=== PATIENT | female | born 1990 | race Two or more races ===

== ENCOUNTER 2018-08-19 14:05 | Outpatient (CLI) | payer OTHER ==
[~2018-08-19 14:05] MED LIST: DOLOGESIC CAPLE1 TAB PO; LEVAQUIN750 MG PO; ORAPRED ODT10 MG/TAB PO; SYMBICORT 16010.2 GM PO; TOBREX5 ML OP; XOPENEX HFA15 GM IH
== END 2018-08-19 14:10 | disposition home or self-care (01) ==
LOC: LAB 14:05
DX: J11.1 Influenza due to unidentified influenza virus with other respiratory manifestations (principal); J02.8 Acute pharyngitis due to other specified organisms; J20.0 Acute bronchitis due to Mycoplasma pneumoniae

== ENCOUNTER → 2018-10-31 | Outpatient (CLI) | payer OTHER | END | disposition home or self-care (01) | LOC: SONOGRAMA 13:03 | DX: N64.89 Other specified disorders of breast (principal) ==

== ENCOUNTER 2019-04-29 08:36 | Outpatient (CLI) | payer OTHER | END 2019-04-29 08:46 | disposition home or self-care (01) | LOC: SONOGRAMA 08:36 | DX: N60.11 Diffuse cystic mastopathy of right breast (principal); N60.12 Diffuse cystic mastopathy of left breast; Z80.8 Family history of malignant neoplasm of other organs or systems ==

== ENCOUNTER 2019-06-13 09:45 | Outpatient (CLI) | payer OTHER | END 2019-06-13 09:56 | disposition home or self-care (01) | LOC: LAB 09:45 | DX: J11.1 Influenza due to unidentified influenza virus with other respiratory manifestations (principal) ==

== ENCOUNTER → 2019-09-23 13:56 | Outpatient (CLI) | payer OTHER | END | disposition home or self-care (01) | LOC: LAB 13:56 | DX: J11.1 Influenza due to unidentified influenza virus with other respiratory manifestations (principal); R05 Cough; Z20.89 Contact with and (suspected) exposure to other communicable diseases ==

== ENCOUNTER 2019-09-23 14:37 | Outpatient (CLI) | payer OTHER | END 2019-09-23 14:38 | disposition home or self-care (01) | LOC: RAD 14:37 | DX: R05 Cough (principal); J06.9 Acute upper respiratory infection, unspecified ==

== ENCOUNTER 2020-02-26 13:32 | Outpatient (CLI) | payer OTHER | END 2020-02-26 13:45 | disposition home or self-care (01) | LOC: CERTIFICAD 13:32 | PROVIDERS: ATTEND Internal Medicine Infectious Disease | DX: Z02.79 Encounter for issue of other medical certificate (principal); J06.9 Acute upper respiratory infection, unspecified ==

== ENCOUNTER 2020-02-26 13:37 | Outpatient (CLI) | payer OTHER | END 2020-02-26 13:45 | disposition home or self-care (01) | LOC: RAD 13:37 | PROVIDERS: ATTEND Internal Medicine Infectious Disease | DX: J06.9 Acute upper respiratory infection, unspecified (principal) ==

== ENCOUNTER 2020-03-15 17:10 | Outpatient (CLI) | payer OTHER | END 2020-03-15 19:16 | disposition home or self-care (01) | LOC: PPH VACUNA 17:10 | DX: Z23 Encounter for immunization (principal) ==

== ENCOUNTER 2020-03-29 13:01 | Outpatient (CLI) | payer OTHER | END 2020-03-29 13:11 | disposition home or self-care (01) | LOC: SONOGRAMA 13:01 → MAMO-SONO 13:15 | PROVIDERS: ATTEND Surgery | DX: N60.11 Diffuse cystic mastopathy of right breast (principal); N60.12 Diffuse cystic mastopathy of left breast ==

== ENCOUNTER → 2020-12-29 | Outpatient (CLI) | payer OTHER | END | disposition home or self-care (01) | LOC: LAB 15:35 | PROVIDERS: ATTEND Emergency Medicine Pediatric Emergency Medicine | DX: Z03.818 Encounter for observation for suspected exposure to other biological agents ruled out (principal) ==

== ENCOUNTER → 2021-03-06 | Outpatient (CLI) | payer OTHER | END | disposition home or self-care (01) | LOC: PPH VACUNA 08:00 | PROVIDERS: ATTEND Emergency Medicine Pediatric Emergency Medicine | DX: Z23 Encounter for immunization (principal) ==

== ENCOUNTER 2021-04-19 09:00 | Outpatient (CLI) | payer OTHER | END 2021-04-19 09:30 | disposition home or self-care (01) | LOC: PPH VACUNA 09:00 | PROVIDERS: ATTEND Emergency Medicine Pediatric Emergency Medicine | DX: Z23 Encounter for immunization (principal) ==

== ENCOUNTER 2021-11-08 07:42 | Outpatient (CLI) | payer OTHER | END 2021-11-08 08:15 | disposition home or self-care (01) | LOC: SONOGRAMA 07:42 | PROVIDERS: ATTEND Surgery | DX: N60.11 Diffuse cystic mastopathy of right breast (principal); N60.12 Diffuse cystic mastopathy of left breast ==

== ENCOUNTER 2022-02-21 08:00 | Outpatient (CLI) | payer OTHER | END 2022-02-21 08:05 | disposition home or self-care (01) | LOC: PPH VACUNA 08:00 | PROVIDERS: ATTEND Emergency Medicine Pediatric Emergency Medicine | DX: Z23 Encounter for immunization (principal) ==

== ENCOUNTER 2022-05-01 08:53 | Outpatient (CLI) | payer OTHER | END 2022-05-01 09:00 | disposition home or self-care (01) | LOC: LAB 08:53 | PROVIDERS: ATTEND Preventive Medicine Occupational Medicine | DX: U07.1 COVID-19 (principal) ==

== ENCOUNTER 2022-11-23 16:39 | Outpatient (CLI) | payer OTHER ==
[2022-11-23] MEDS ORDERED: ZITHROMAX500 MG PO (21:07)
[2022-11-23] MEDS ORDERED: ZYRTEC10 M3 PO (21:07)
== END 2022-11-23 16:40 | disposition home or self-care (01) ==
LOC: LAB 16:39
PROVIDERS: ATTEND Internal Medicine
DX: Z20.822 Contact with and (suspected) exposure to COVID-19 (principal); J06.9 Acute upper respiratory infection, unspecified

== ENCOUNTER 2022-11-23 19:59 | Emergency (ER) | payer OTHER ==
[~2022-11-23] VITALS: Ht 157.5 cm; Wt 45.8 kg
[2022-11-23] MEDS ORDERED: ZYRTEC10 M3 PO (21:07)
[2022-11-23] MEDS ORDERED: ZITHROMAX500 MG PO (21:07)
== END 2022-11-23 21:33 | disposition home or self-care (01) ==
LOC: ER 19:59
DX: B34.9 Viral infection, unspecified (principal); Z88.2 Allergy status to sulfonamides

== ENCOUNTER 2022-12-08 12:27 | Outpatient (CLI) | payer OTHER ==
[~2022-12-08 12:27] MED LIST changes: +ZITHROMAX500 MG PO; +ZYRTEC10 M3 PO
== END 2022-12-08 12:37 | disposition home or self-care (01) ==
LOC: LAB 12:27
DX: J06.9 Acute upper respiratory infection, unspecified (principal); B27.90 Infectious mononucleosis, unspecified without complication

== ENCOUNTER 2023-02-21 07:04 | Emergency (ER) | payer OTHER ==
[~2023-02-21] VITALS: Ht 157.5 cm; Wt 47.6 kg
[2023-02-21] MEDS ORDERED: AMOX-CLAV 875-1 EAC1 PO (08:40)
[2023-02-21 09:20] LABS: HEMATOCRIT 38.8 % (36.0-45.00); HEMOGLOBIN 13.2 g/dL (12.0-15.00); MEAN CELL VOLUME 91.2 fL (80.00-100.00); MEAN CORPUSCULAR HEMOGLOBIN 31.1 pg (27.00-32.0); MEAN CORPUSCULAR HGB CONC 34.1 g/dl (32.0-36.0); PLATELET COUNT 204 K/uL (150-450); RED BLOOD COUNT 4.25 M/uL (4.00-6.00); RED CELL DISTRIBUTION WIDTH 13.4 % (11.5-14.5)
== END 2023-02-21 09:49 | disposition home or self-care (01) ==
LOC: ER 07:04
PROVIDERS: General Practice
DX: J02.9 Acute pharyngitis, unspecified (principal); Z20.822 Contact with and (suspected) exposure to COVID-19; Z88.1 Allergy status to other antibiotic agents

== ENCOUNTER 2023-02-22 08:08 | Outpatient (CLI) | payer OTHER ==
[~2023-02-22 08:08] MED LIST changes: +AMOX-CLAV 875-1 EAC1 PO
[2023-02-23 09:08] LABS: hav igm Negative (Negative); hcv Non Reactive (Non Reactive); hep b c Negative (Negative)
== END 2023-02-22 08:10 | disposition home or self-care (01) ==
LOC: LAB 08:08
PROVIDERS: ATTEND Internal Medicine Infectious Disease
DX: Z11.3 Encounter for screening for infections with a predominantly sexual mode of transmission (principal)

== ENCOUNTER 2023-04-02 10:45 | Outpatient (CLI) | payer OTHER | END 2023-04-02 10:52 | disposition home or self-care (01) | LOC: SONOGRAMA 10:45 | PROVIDERS: ATTEND Surgery | DX: N60.12 Diffuse cystic mastopathy of left breast (principal); Z88.1 Allergy status to other antibiotic agents ==

== ENCOUNTER 2023-04-18 11:45 | Outpatient (CLI) | payer OTHER | END 2023-04-18 14:11 | disposition home or self-care (01) | LOC: MRI 11:45 | PROVIDERS: ATTEND Chiropractor Sports Physician | DX: M54.17 Radiculopathy, lumbosacral region (principal) | CPT/HCPCS: 72148 ==

== ENCOUNTER 2024-05-28 13:08 | Outpatient (CLI) | payer OTHER | END 2024-05-28 13:18 | disposition home or self-care (01) | LOC: RAD 13:08 | DX: M25.512 Pain in left shoulder (principal) ==

== ENCOUNTER 2024-11-27 10:27 | Outpatient (CLI) | payer OTHER | END 2024-11-27 10:37 | disposition home or self-care (01) | LOC: RAD 10:27 | DX: M25.552 Pain in left hip (principal); M62.838 Other muscle spasm; G57.02 Lesion of sciatic nerve, left lower limb ==

== ENCOUNTER 2025-02-16 13:25 | Outpatient (CLI) | payer OTHER ==
[2025-02-18 05:06] LABS: HEPATITIS A ANTIBODY IGG Negative (Negative); HEPATITIS C VIRUS ANTIBODY Non Reactive (Non Reactive)
== END 2025-02-16 13:26 | disposition home or self-care (01) ==
LOC: LAB 13:25
DX: A64 Unspecified sexually transmitted disease (principal); B15.9 Hepatitis A without hepatic coma; B19.20 Unspecified viral hepatitis C without hepatic coma